=== PATIENT | male | born 1985 | race Caucasian/White ===

== ENCOUNTER 2016-07-09 16:00 | Inpatient (IN) | payer OTHER ==
--- NOTE | ~2016-07-09 | PN ---
Unit #: [id number] #: [id number] Patient: COLIN CARMONA [id number] [facility] [address] [place] [address] [id number] I MR#: [id number] NAME: COLIN CARMONA ROOM: P206 Age: 31 Sex: M Admission Date: 07/09/2016 : 1985 Attending Physician: Kieran Carpenter M.D. Admitting Physician: Kieran Carpenter M.D. Primary Care Physician: Primary Care Physician Cheli ARRINGTON PROGRESS NOTES DATE 07/11/2016 DISCUSSION The patient awakens today with some difficulty. He states that he does not have interest in post discharge chemical dependence treatment and plans to go home upon his discharge which will likely take place tomorrow with completion of detox. Dictated by... Kieran Carpenter M.D. CB/magan TD: 07/11/2016 15:08 JOB #: [id number] [facility] PROGRESS NOTES Page 1 of 1 X Kieran Carpetner MD PROGRESS NOTE
--- NOTE | ~2016-07-09 | DS ---
Unit #: [id number] #: [id number] Patient: COLIN CARMONA [id number] [place] [address] [id number] MR#: [id number] NAME: COLIN CARMONA. ROOM: [facility] Age: 31 Sex: M Admission Date: 07/09/2016 : 1985 Discharge Date: 07/13/2016 Attending Physician: Kieran Carpenter M.D. Primary Care Physician: Primary Care Physician No DISCHARGE SUMMARY REASON FOR ADMISSION The patient is a 31-year-old white male, admitted with a history of polysubstance dependence and suicidal ideation. HOSPITAL COURSE The patient was admitted to the [address] [place] [address] unit and placed on routine detoxification protocol for opioids and sedative-hypnotics. He remained seclusive to room throughout much of his stay in the hospital, but had brightened considerably by 07/12/2016. By 07/13/2016, the patient was in bright spirits and denied any symptoms of withdrawal. He was agreeable with the plan for followup through the auspices of the intensive outpatient program provided by this facility, and discharge was ordered. FINAL DIAGNOSES Dysthymic disorder, opioid use disorder, methamphetamine use disorder, cannabis use disorder, sedative-hypnotic use disorder, compartment syndrome, hemophilia. DISPOSITION ON DISCHARGE The patient is discharged on no psychotropic or other medications. FOLLOWUP Followup will take place through the auspices of community mental health resources and the intensive outpatient program provided by this facility. PROGNOSIS The patient's prognosis is considered fair. Dictated by... Kieran Carpenter M.D. CB/julieta TD: 07/13/2016 16:43 JOB #: [id number] Unit #: [id number] #: [id number] Patient: COLIN CARMONA DISCHARGE SUMMARY Page 1 of 1 X Kieran Carpenter MD X DISCHARGE SUMMARY
--- NOTE | ~2016-07-09 | PN ---
Unit #: [id number] #: [id number] Patient: COLIN CARMONA [id number] [facility] [address] [place] [address] [id number] MR#: [id number] NAME: COLIN CARMONA ROOM: P206 Age: 31 Sex: M Admission Date: 07/09/2016 : 1985 Attending Physician: Kieran Carpenter M.D. Admitting Physician: Kieran Carpenter M.D. Primary Care Physician: Primary Care Physician Cheli ARRINGTON PROGRESS NOTES DATE 07/12/2016 DISCUSSION The patient is abed today but arouses without difficulty. He continues to complain of significant withdrawal symptoms from opioids and sedative hypnotics. States that he feels "like expletive." Dictated by... Kieran Carpenter M.D. CB/bzg TD: 07/12/2016 12:06 JOB #: [id number] [facility] PROGRESS NOTES Page 1 of 1 X Kieran Carpenter MD X PROGRESS NOTE
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
--- NOTE | ~2016-07-09 | PA ---
Unit #: [id number] #: [id number] Patient: COLIN CARMONA [id number] [place] [address] [id number] MR#: [id number] NAME: COLIN CARMONA. ROOM: [facility] Age: 31 Sex: M Admission Date: 07/09/2016 : 1985 Date of Assessment: 07/10/2016 Attending Physician: Kieran Carpenter M.D. Admitting Physician: Kieran Carpenter M.D. Primary Care Physician: Primary Care Physician No PSYCHIATRIC ASSESSMENT IDENTIFYING INFORMATION The patient is a 31-year-old white male admitted following a recent relapse of polysubstance abuse. CHIEF COMPLAINT None given. INFORMANT(S) Patient cannot be aroused for interview. HISTORY OF PRESENT ILLNESS The patient is a 31-year-old white male with a long history of polysubstance dependence including abuse of heroin, Xanax, Neurontin, and methamphetamine. The patient's had recent learned that he had relapsed and had expelled him from the domicile that had previously shared. The patient reports that upon hearing the ultimatum from his he went out on a binge. He reports that he has been unable to sleep, and had been having vivid nightmares. He was denying any suicidal or homicidal ideation but states that he has not eaten in the past 3 days. 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 The patient had reported feelings of hopelessness and frequent crying spells during interview. The patient did not report suicidal ideation at the time of admission. PAST PSYCHIATRIC HISTORY The patient does not report any history of previous psychiatric treatment or chemical dependence treatment. PAST MEDICAL HISTORY Significant for history of compartment syndrome and hemophilia. MEDICATIONS None. ALLERGIES None. FAMILY HISTORY The patient reports that several family members have been treated for substance abuse. SOCIAL HISTORY The patient is currently homeless. His educational and vocational history Unit #: [id number] #: [id number] Patient: COLIN CARMONA are described previously. He has been arrested on drug-related charges on multiple occasions. MENTAL STATUS EXAMINATION Examination at this time reveals the patient to be a soundly sleeping white male. Multiple attempts to arouse the patient are unsuccessful. The patient assets are to be assessed. Liabilities: Homelessness, lack of resources. DIAGNOSTIC IMPRESSION 1. Dysthymic disorder. 2. Opioid use disorder. 3. Methamphetamine use disorder. 4. Cannabis use disorder. 5. Sedative-hypnotic use disorder. TREATMENT PLAN The patient remains hospitalized for safety and stabilization. Routine detoxification protocol for sedative hypnotics and opioids are in place. The patient will participate in appropriate order of milieu activities. ESTIMATED LENGTH OF STAY 5 to 7 days. Dictated by... Kieran Carpenter M.D. KAMARI/rosy TD: 07/10/2016 13:49 JOB #: [id number] PSYCHIATRIC ASSESSMENT Page 1 of 1 X Kieran Carpenter MD X PSYCHIATRIC ASSESSMENT
[2016-07-13 11:26] LABS: URINE APPEARANCE CLEAR; URINE BILIRUBIN NEG (NEG); URINE BLOOD NEG (NEG); URINE COLOR YELLOW; URINE GLUCOSE NEG (NEG); URINE KETONE NEG (NEG); URINE LEUKOCYTE ESTERASE NEG (NEG); URINE NITRATE NEG (NEG); URINE PROTEIN NEG (NEG); URINE SPECIFIC GRAVITY 1.012 (1.003-1.035); URINE UROBILINOGEN 0.2 MG/DL (NEG)
== END 2016-07-13 14:39 | disposition home or self-care (01) | DRG 881 ==
LOC: P2S 21:57
PROVIDERS: Specialist
PROC: HZ2ZZZZ Detoxification Services for Substance Abuse Treatment (ICD-10-PCS; principal; 2016-07-09)
DX: F34.1 Dysthymic disorder (principal); D66 Hereditary factor VIII deficiency; F11.20 Opioid dependence, uncomplicated; F15.20 Other stimulant dependence, uncomplicated; F13.20 Sedative, hypnotic or anxiolytic dependence, uncomplicated; R45.851 Suicidal ideations; T79.A0XA Compartment syndrome, unspecified, initial encounter; F12.20 Cannabis dependence, uncomplicated; F17.210 Nicotine dependence, cigarettes, uncomplicated
CPT/HCPCS: 81003